=== PATIENT | male | born 1960 | race Hispanic/Latino ===

== ENCOUNTER 2022-12-30 12:14 | Emergency (ER) | payer BC, SELFPAY ==
[2022-12-30 12:21] VITALS: BP 147/99; PULSE 89; RESP 18; TEMP 37.1; O2SAT 98
--- NOTE | 2022-12-30 12:34 | ED.GENADULT ---
HPI - General Adult General Stated complaint: Poss UTI Source: patient and RN notes reviewed History of Present Illness HPI narrative: 62 yo M presents to urgent care with complaints of urinary frequency during the day for the last 10 days. Pt denies any burning with urination, flank pain, abdominal pain, back pain, fevers, chills, vomiting. Denies any history of prostate issues. Denies any diarrhea or constipation. Patient does admit to drinking more orange juice and vanilla iced coffees recently. Some parts of this dictation were generated by voice recognition software and may contain typographical and/or grammatical inaccuracies. Related Data Allergies Allergy/AdvReac Type Severity Reaction Status Date / Time No Known Allergies Allergy Verified 12/30/22 12:34 Review of Systems Review of Systems: Pertinent positives and pertinent negatives per HPI. PMFSH Comments At the time of my signature, I reviewed and agree with the nursing past medical, surgical, social, and family history. There is no relevant family history pertinent to the patient complaint. Exam Narrative: GENERAL: This is a well-nourished, well-developed patient, in no apparent distress. HEAD: normocephalic, atraumatic. EYES: Sclera clear/white. Vision is grossly intact. EARS: External ears normal, auditory canals clear and without drainage, TMs normal without perforation. Hearing grossly intact. NOSE: External nose normal with no obvious nasal discharge, nares without redness, no rhinorrhea. THROAT: Mucous membranes moist, posterior pharynx clear. NECK: Neck supple, non-tender without lymphadenopathy, masses or thyromegaly. CARDIOVASCULAR: Regular rate RESPIRATORY: No respiratory distress GASTROINTESTINAL: Abdomen soft, non-tender, nondistended. Bowel sounds are active. No hepato-splenomegaly, or palpable masses. No guarding. SKIN: warm, intact with no suspicious lesions or rash, good texture and turgor. NEURO: awake, alert, and oriented to person, place and time. There were no obvious focal neurologic abnormalities. BACK: Nontender without deformity or crepitance. No flank tenderness. Course Course Level of Care: Express Care Visit Vital Signs Vital signs: Vital Signs Temperature 98.8 F 12/30/22 12:21 Pulse Rate 89 12/30/22 12:21 Respiratory Rate 18 12/30/22 12:21 Blood Pressure 147/99 H 12/30/22 12:21 Pulse Oximetry 98 12/30/22 12:21 Oxygen Delivery Room Air 12/30/22 12:21 Temperature 98.8 F 12/30/22 12:21 Pulse Rate 89 12/30/22 12:21 Respiratory Rate 18 12/30/22 12:21 Blood Pressure 147/99 H 12/30/22 12:21 Pulse Oximetry 98 12/30/22 12:21 Oxygen Delivery Room Air 12/30/22 12:21 Reviewed Medical Decision Making MDM Narrative Medical decision making narrative: Decrease your sugary drinks and caffeine to see if your symptoms improve. Follow up with your PCP next week. Go to the ER with any new or worsening symptoms. Differential Diagnosis Differential Diagnosis: UTI, STI, prostate issues. Vital Signs Vital Signs: Vital Signs Temperature 98.8 F 12/30/22 12:21 Pulse Rate 89 12/30/22 12:21 Respiratory Rate 18 12/30/22 12:21 Blood Pressure 147/99 H 12/30/22 12:21 Pulse Oximetry 98 12/30/22 12:21 Oxygen Delivery Room Air 12/30/22 12:21 Temperature 98.8 F 12/30/22 12:21 Pulse Rate 89 12/30/22 12:21 Respiratory Rate 18 12/30/22 12:21 Blood Pressure 147/99 H 12/30/22 12:21 Pulse Oximetry 98 12/30/22 12:21 Oxygen Delivery Room Air 12/30/22 12:21 Lab Data Lab results reviewed: Yes I reviewed the patient's lab results. Labs: Urine Glucose Negative Reference Range: Negative Urine Bilirubin Negative Reference Range: Negative Urine Ketone Negative Reference Range: Negativ
== END 2022-12-30 12:45 | disposition home or self-care (01) ==
PROVIDERS: Emergency Provider Nurse Practitioner Family; PCP Internal Medicine
DX: R35.0 Frequency of micturition (principal); R35.89 Other polyuria
CPT/HCPCS: 81003; 99212; G0463

== ENCOUNTER 2023-09-28 17:12 | Emergency (ER) | payer BC, SELFPAY ==
--- NOTE | 2023-09-28 17:13 | ED.BACK ---
HPI - Back Pain/Injury General Chief Complaint: Back Pain/Injury Stated Complaint: Back Pain Time Seen by Provider: 09/28/23 17:22 Source: patient, RN notes reviewed and old records reviewed Mode of arrival: ambulatory Limitations: no limitations History of Present Illness HPI Narrative: 62-year-old male presents to the [facility] with complaints of back pain since last night. Patient is diaphoretic, uncontrolled tremors. Unsteady/staggering gait had a moment of slurring speech when trying to give past medical history. Patient reports that he was at the chiropractor twice today was referred to the Urgent Care for pain medicine. Generalized weakness noted, weaker art glass setter on the left than the right. Facial symmetry was noted. Tongue was midline. Reports sensation bilateral equal. Denies any drug use. Denies any use of alcohol in the last 3 years. Denies being diabetic. Blood sugar in clinic was 152 Onset (ago): day(s) (1) Related Data Home Medications Medication Instructions Recorded Confirmed levothyroxine 50 mcg tablet 50 mcg PO DAILY 12/30/22 09/28/23 losartan 100 mg tablet 100 mg PO DAILY 12/30/22 09/28/23 mecobalamin (vitamin B12) 1,000 1,000 mcg PO DAILY 12/30/22 09/28/23 mcg chewable tablet Allergies Allergy/AdvReac Type Severity Reaction Status Date / Time No Known Allergies Allergy Verified 12/30/22 12:34 Review of Systems Review of Systems: All systems reviewed & are unremarkable except as noted in HPI and below Constitutional: Constitutional: Reports no additional constitutional complaints Eyes: Eyes: Reports no additional eye complaints ENT: Reports system reviewed and no additional complaints, except as documented Cardiovascular: Cardiovascular: Reports as per HPI, Denies chest pain, Reports diaphoresis, Reports rapid heart rate, Denies edema and Reports dyspnea Respiratory: Respiratory: Reports as per HPI, Denies chest congestion, Denies cough and Reports dyspnea Gastrointestinal: Gastrointestinal: Reports no additional gastrointestinal complaints, Denies abdominal pain, Denies nausea and Denies vomiting Musculoskeletal: Musculoskeletal: Reports as per HPI and Reports back pain Integumentary/Breasts: Skin/Breast: Reports system reviewed and no additional complaints, except as docu Neurologic: Reports as per HPI, Reports abnormal gait, Reports dizziness, Denies syncope, Denies headache(s), Denies loss of vision, Denies memory loss, Denies numbness, Denies convulsions, Denies paresthesias and Reports tremor(s) Psychiatric: Psychiatric: Reports no additional psychiatric complaints Allergic/Immunologic: Allergic/Immunologic: Reports no additional allergic/immunologic complaints [facility] Past Medical History Medical History (Updated 09/28/23 @ 18:08 by Precious Weeks APRN) History of high blood pressure Hypothyroid Comments At the time of my signature, I reviewed and agree with the nursing past medical, surgical, social, and family history. There is no relevant family history pertinent to the patient complaint. Exam Const: General: no acute distress, well developed, alert, in distress severe (Pain), anxious, uncomfortable, well groomed and well nourished Nutritional Appearance: well nourished Orientation/consciousness: patient oriented x3 Limitations: no limitations HENMT: Head: normal to inspection Ears: hearing grossly normal bilaterally and external ears normal Face/Nose/Sinus: Normal external nose present, Normal nares present, Normal nasal mucous membranes and turbinates present, normal facial exam and face symmetric Face and sinus: normal facial exam and face symmetric Mouth: Yes Normal oral and palatal mucosa present, Yes lip normal and Yes moist mucous membranes Eyes: General: appearance normal, both eyes and all related structures Alignment and Position: alignment normal Periorbital: periorbital findings normal Pupils: Equal, round and reactive pupils present EOM: EOMs intact bi
[2023-09-28 17:30] LABS: Glucose Point of Care 152 mg/dl (65-105)
[2023-09-28 17:32] VITALS: BP 171/121; PULSE 140; RESP 24; TEMP 37.7; O2SAT 97
--- NOTE | 2023-09-28 17:54 | ECG_ITS ---
Measurements Intervals [place] Rate: 136 P: 31 ND: 134 QRS: -85 QRSD: 100 T: 43 QT: 359 QTc: 541 Interpretive Statements BASELINE ARTIFACT/REDUCED QUALITY ECG SINUS TACHYCARDIA VERSES ATYPICAL ATRIAL FLUTTER INDETERMINATE AXIS PREVIOUS INFERIOR WALL HI ABNORMAL ECG NO PREVIOUS ECG AVAILABLE FOR COMPARISON Electronically Signed On 09-29-2023 13:53:37 BILINGUAL TEACHER AIDE by Xander Bass M.D.
--- NOTE | 2023-09-28 17:54 | PC.NURSE ---
PT BLOOD SUGAR 152 AT 1730.
== END 2023-09-28 17:45 | disposition short-term general hospital (02) ==
PROVIDERS: Emergency Provider Nurse Practitioner; PCP Internal Medicine
DX: M54.9 Dorsalgia, unspecified (principal); E03.9 Hypothyroidism, unspecified; Z79.899 Other long term (current) drug therapy
CPT/HCPCS: 82948; 93005; 99215; G0463